=== PATIENT | male | born 1985 ===

== ENCOUNTER 2018-08-09 12:39 | Emergency (ER) | payer OTHER ==
[2018-08-09 12:43] VITALS: BP 148/91; PULSE 79; TEMP 97.2; O2SAT 100
[2018-08-09] MEDS ORDERED: MethylPREDNISolone 40 mg Vial IM STA (13:12)
[2018-08-09] MEDS ORDERED: MethylPREDNISolone 40 mg Vial ONE (13:28)
--- NOTE | 2018-08-09 14:09 | C.PDOC ---
History Of Present Illness 32 year old male presents to the ED for evaluation of an itchy rash to the entire body for 3-4 days. The patient reports prior visit to the PMD who prescribed Benadryl and Prednisone with no improvement in symptoms. He denies fever, chills, abdominal pain, and any other associated symptoms. Time Seen by Provider: 08/09/18 12:56 Chief Complaint (Nursing): Abnormal Skin Integrity History Per: Patient History/Exam Limitations: no limitations Onset/Duration Of Symptoms: Days Current Symptoms Are (Timing): Still Present Past Medical History Reviewed: Historical Data, Nursing Documentation, Vital Signs Vital Signs: Last Vital Signs Temp 97.2 F L 08/09/18 12:41 Pulse 79 08/09/18 12:41 Resp 20 08/09/18 12:41 BP 148/91 H 08/09/18 12:41 Pulse Ox 100 08/09/18 12:41 Family History: States: Unknown Family Hx - Social History Hx Alcohol Use: No Hx Substance Use: No - Immunization History Hx Tetanus Toxoid Vaccination: No Hx Influenza Vaccination: No Hx Pneumococcal Vaccination: No Review Of Systems Except As Marked, All Systems Reviewed And Found Negative. Constitutional: Negative for: Fever, Chills Gastrointestinal: Negative for: Abdominal Pain Skin: Positive for: Rash (to entire body. ) Physical Exam - Physical Exam Appears: Well, Non-toxic, No Acute Distress Skin: Normal Color, Warm, Dry Head: Atraumatic, Normacephalic Eye(s): bilateral: Normal Inspection Ear(s): Bilateral: Normal Nose: Normal Oral Mucosa: Moist Throat: Normal, No Erythema, No Exudate Neck: Normal ROM, Supple Chest: Symmetrical Cardiovascular: Rhythm Regular, No Murmur Respiratory: Normal Breath Sounds, No Rales, No Rhonchi, No Wheezing Gastrointestinal/Abdominal: Normal Exam, Soft, No Tenderness Neurological/Psych: Oriented x3, Normal Speech, Normal Cognition ED Course And Treatment O2 Sat by Pulse Oximetry: 100 (RA) Pulse Ox Interpretation: Normal Medical Decision Making Medical Decision Making: Plan: -Benadryl Pepcid Solu-Medrol Progress/Update: Patient stable for discharge home. Prescribed Prednisone, Medrol Dos Pack, Pepcid, and Benadryl. Disposition - Disposition Referrals: [facility] [Outside] Disposition: HOME/ ROUTINE Disposition Time: 14:03 Additional Instructions: Follow up with the medical doctor within 1-2 days, Return if worsened. Prescriptions: DiphenhydrAMINE [Benadryl] 25 mg PO QID #28 cap Famotidine [Pepcid] 20 mg PO BID #20 tab Methylprednisolone [Medrol Dose Pack (21 tabs)] 4 mg PO DAILY #21 mg Instructions: Hives (DC) Forms: [employer] (Pashto) - Clinical Impression Clinical Impression: Urticaria - PA / [employer] / Resident Statement MD/DO has reviewed & agrees with the documentation as recorded. - Scribe Statement The provider has reviewed the documentation as recorded by the Scribe (Ella Rangel) All medical record entries made by the Scribe were at my direction and personally dictated by me. I have reviewed the chart and agree that the record accurately reflects my personal performance of the history, physical exam, medical decision making, and the department course for this patient. I have also personally directed, reviewed, and agree with the discharge instructions and disposition.
[2018-08-09 14:16] VITALS: RESP 18
== END 2018-08-09 14:15 | disposition home or self-care (01) ==
LOC: C.ER 12:39
DX: L50.9 Urticaria, unspecified (principal)
CPT/HCPCS: 96372; 99284; J2920